=== PATIENT | female | born 1985 | race Two or more races ===

== ENCOUNTER → 2019-08-10 | Emergency (ER) | payer MEDICAID, OTHER ==
[~2019-08-10] VITALS: Ht 167.6 cm; Wt 115.2 kg
[~2019-08-10] MED LIST: ENOXAPARIN SOD 100 MG/1 ML SYRINGE SC SCH; ENOXAPARIN SOD 60 MG/0.6 ML SYRINGE SC ONE; HYDROcodone-ACET 5/325MG TAB PO ONE; IOHEXOL 350 MG/ML 100ML IJ ONE
[2019-08-10 18:52] LABS: Basophils # (auto) 0.1 10 ^3/uL (0-0.2); Mean Corpuscular Hgb Conc. 31.9 g/dL (32.0-36.0)
[2019-08-10 18:54] LABS: Basophils % (auto) 0.6 % (0.0-2.0); Eosinophils # (auto) 0.2 10 ^3/uL (0-0.8); Eosinophils % (auto) 2.2 % (0.0-7.0); Hemoglobin 12.1 g/dL (12.2-16.2); Lymphocytes % (auto) 26.4 % (10.0-50.0); Mean Corpuscular Hemoglobin 25.5 pg (28.0-32.0); Monocytes # (auto) 0.7 10 ^3/uL (0-1.3); Monocytes % (auto) 6.1 % (0.0-12.0); Neutrophils # (auto) 7.3 10 ^3/uL (1.6-8.6); Neutrophils % (auto) 64.7 % (37.0-80.0); Platelet Count (auto) 278 10^3/uL (140-450); Red Blood Cells 4.75 10^6/uL (4.0-5.20); Red Cell Distribution Width 14.8 % (11.8-14.3); White Blood Cell 11.3 10^3/uL (4.4-10.8)
[2019-08-10 19:18] LABS: Albumin 3.2 g/dL (3.4-5.0); Anion Gap 6 (5-15); Blood Urea Nitrogen 8 mg/dL (7-18); Calcium 8.3 mg/dL (8.5-10.1); Carbon Dioxide 26 mmol/L (21-32); Chloride 101 mmol/L (98-107); Glucose 284 mg/dL (74-106); Potassium 3.6 mmol/L (3.5-5.1); Sodium 133 mmol/L (136-145)
[2019-08-10 19:23] LABS: Alanine Aminotransferase 18 U/L (13-56); Alkaline Phosphatase 101 U/L (45-117); Aspartate Aminotransferase 14 U/L (15-37); BUN/Creatinine Ratio 11.4; Bilirubin, Total 0.2 mg/dL (0.2-1.0); GFR African American 123 mL/min; GFR Non-African American 102 mL/min; Total Protein 7.8 g/dL (6.4-8.2)
[2019-08-10 20:47] LABS: Urine Bacteria FEW /hpf (None Seen); Urine Blood Negative /uL (Negative); Urine WBC 1 /hpf (0 - 5)
[2019-08-10 22:32] LABS: INR 0.96 (0.9-1.15); Partial Thromboplastin Time 28.4 sec (23.64-32.05)
[2019-08-11 06:27] LABS: Cholesterol 172 mg/dL (< 200); HDL Cholesterol 51 mg/dL (40-59); LDL Cholesterol 94 mg/dL (< 100); Triglycerides 259 mg/dL (< 150)
[2019-08-11 08:59] VITALS: BP 114/71
== END | disposition home or self-care (01) ==
LOC: ER 18:02
DX: I26.99 Other pulmonary embolism without acute cor pulmonale (principal); G43.909 Migraine, unspecified, not intractable, without status migrainosus; I82.409 Acute embolism and thrombosis of unspecified deep veins of unspecified lower extremity; E11.9 Type 2 diabetes mellitus without complications; Z20.828 Contact with and (suspected) exposure to other viral communicable diseases
CPT/HCPCS: 36415; 71046; 71275; 80053; 80061; 81001; 82728; 84484; 85025; 85379; 85610; 85730; 87070; 87804; 87880; 93005; 93970; 96372; 99285; C9803; J1650; Q9967

== ENCOUNTER → 2019-11-25 | Emergency (ER) | payer MEDICAID ==
[~2019-11-25] VITALS: Ht 167.6 cm; Wt 123.8 kg
[~2019-11-25] MED LIST changes: +ASPirin 81 mg TAB PO ONE; -ENOXAPARIN SOD 100 MG/1 ML SYRINGE SC SCH; -ENOXAPARIN SOD 60 MG/0.6 ML SYRINGE SC ONE; -HYDROcodone-ACET 5/325MG TAB PO ONE
[2019-11-25 13:19] LABS: Basophils # (auto) 0.1 10 ^3/uL (0-0.2); Basophils % (auto) 0.6 % (0.0-2.0); Eosinophils # (auto) 0.2 10 ^3/uL (0-0.8); Eosinophils % (auto) 2.1 % (0.0-7.0)
[2019-11-25 13:22] LABS: Hematocrit 37.7 % (36.0-46.0); Lymphocytes # (auto) 2.2 10 ^3/uL (0.4-5.4); Lymphocytes % (auto) 23.2 % (10.0-50.0); Mean Corpuscular Hemoglobin 25.8 pg (28.0-32.0); Mean Corpuscular Hgb Conc. 31.8 g/dL (32.0-36.0); Mean Corpuscular Volume 81.3 fL (80.0-100.0); Monocytes # (auto) 0.5 10 ^3/uL (0-1.3); Monocytes % (auto) 5.4 % (0.0-12.0); Neutrophils # (auto) 6.5 10 ^3/uL (1.6-8.6); Neutrophils % (auto) 68.7 % (37.0-80.0); Platelet Count (auto) 289 10^3/uL (140-450); Red Blood Cells 4.64 10^6/uL (4.0-5.20); Red Cell Distribution Width 16.7 % (11.8-14.3); White Blood Cell 9.5 10^3/uL (4.4-10.8)
[2019-11-25 13:37] LABS: INR 0.94 (0.9-1.15); Partial Thromboplastin Time 26.1 sec (23.0-31.2)
[2019-11-25 13:38] LABS: Albumin 3.2 g/dL (3.4-5.0); Anion Gap 5 (5-15); Blood Urea Nitrogen 13 mg/dL (7-18); Calcium 8.5 mg/dL (8.5-10.1); Carbon Dioxide 26 mmol/L (21-32); Chloride 107 mmol/L (98-107); Glucose 196 mg/dL (74-106); Magnesium 2.4 mg/dL (1.6-2.6); Potassium 4.1 mmol/L (3.5-5.1); Sodium 138 mmol/L (136-145)
[2019-11-25 13:44] LABS: Alanine Aminotransferase 19 U/L (13-56); Alkaline Phosphatase 78 U/L (45-117); Aspartate Aminotransferase 10 U/L (15-37); BUN/Creatinine Ratio 17.6; Bilirubin, Total 0.2 mg/dL (0.2-1.0); GFR African American 116 mL/min; GFR Non-African American 95 mL/min; Total Protein 7.4 g/dL (6.4-8.2)
[2019-11-25 16:25] LABS: Urine Bacteria FEW /hpf (None Seen); Urine Blood 3+ /uL (Negative); Urine Specific Gravity 1.015 (1.001-1.035); Urine WBC <1 /hpf (0 - 5)
[2019-11-25 17:52] VITALS: BP 161/98
== END | disposition home or self-care (01) ==
LOC: ER 12:15
DX: R07.9 Chest pain, unspecified (principal); E11.65 Type 2 diabetes mellitus with hyperglycemia; Z86.711 Personal history of pulmonary embolism; Z79.01 Long term (current) use of anticoagulants
CPT/HCPCS: 36415; 71045; 71275; 80053; 81001; 83735; 84443; 84484; 85025; 85379; 85610; 85730; 93005; 99285; Q9967